=== PATIENT | female | born 1935 | race Caucasian/White ===

== ENCOUNTER 2024-07-31 07:07 | Emergency (ER) | payer OTHER, SELFPAY ==
[2024-07-31 07:09] VITALS: BP 156/74
[2024-07-31 07:19] LABS: Glucose - Point of Care 206 mg/dl (70-99)
[2024-07-31 07:31] VITALS: BP 150/140
[2024-07-31 07:34] VITALS: BP 144/64
--- NOTE | 2024-07-31 07:36 | ED.GENMED ---
History of Present Illness
General
Chief Complaint: Abdominal Pain
Source: patient
Exam Limitations: none
Time Seen by Provider: 07/31/24 07:26
History of Present Illness
History of Present Illness:
89-year-old insulin-dependent diabetic presents complaining of onset of upper abdominal pain around midnight last evening has been constant since. The pain is not pleuritic. She denies chest pain. She denies nausea or vomiting. There may have
been some diarrhea in the patient's apartment per the daughter. Patient has a prior surgical history of cholecystectomy. The pain does not radiate to the back. She is not anticoagulated. No shortness of breath. No other complaints at this time
Past History
Past History
ED Past Medical History: None
ED Past Surgical History: None
Social History
Tobacco: Non-smoker
Personal: Single
Living: alone
Phy Exam
Physical Exam
Physical Exam:
General: Well-appearing female no acute respiratory distress
HEENT: Normocephalic atraumatic heart: Regular rate and rhythm no murmurs
Lungs: Clear no wheeze
Abdomen: Soft mildly tender to the mid and upper abdomen. No guarding rebound normal bowel sounds nondistended no costovertebral angle tenderness
Extremities: No cyanosis or edema
Skin: Warm no rash
Course
Orders/Labs/Results
Orders:
Orders
07/31/24 07:34
Electrocardiogram (*1) Urgent
Reason for Study: Abdominal Pain
CT Abd/pelvis W Iv Cont Urgent
Comment:
Reason For Exam: mid abdominal pain
EKG- Treatment ONCE
Urinalysis Reflex To Culture Urgent
Date Specimen was Collected: 07/31/24
Time Specimen was Collected: 07:47
07/31/24 07:52
Complete Blood Count/With Diff Urgent
Comprehensive Metabolic Panel Urgent
Lipase Urgent
Troponin I Urgent
Abnormal Lab Results
07/31/24 07/31/24
07:18 07:52
RBC 3.43 L 10^6/uL
(4.20-5.40)
Hgb 9.1 L g/dL
(12.0-16.0)
Hct 29.5 L %
(37.0-47.0)
MCH 26.5 L pg
(27.0-31.0)
MCHC 30.8 L g/dL
(33.0-37.0)
Plt Count 454 H 10^3/uL
(130-400)
Absolute Neuts (auto) 7.5 H 10^3/uL
(1.4-6.5)
Absolute Lymphs (auto) 1.1 L 10^3/uL
(1.2-3.4)
Absolute Monos (auto) 0.7 H 10^3/uL
(0.1-0.6)
Neutrophils % 79.9 H %
(42.2-75.2)
Lymphocytes % 11.3 L %
(20.5-51.1)
Sodium 134 L mmol/L
(135-145)
Creatinine 0.5 L mg/dL
(0.6-1.0)
Glucose 202 H mg/dl
(70-99)
POC Glucose 206 H mg/dl
(70-99)
07/31/24 07:52
07/31/24 07:52
Vital Signs
Initial and Last Documented VS:
Initial Vital Signs
Temp Pulse Resp BP Pulse Ox
97.6 F 85 16 156/74 99
07/31/24 07:09 07/31/24 07:09 07/31/24 07:09 07/31/24 07:09 07/31/24 07:09
Last Documented Vital Signs
Temp Pulse Resp BP Pulse Ox
98.5 F 80 21 155/80 96
07/31/24 08:03 07/31/24 08:03 07/31/24 08:03 07/31/24 09:39 07/31/24 08:03
MDM/Problems Addressed
Differential Diagnosis Includes:
Abdominal pain. Differential could include gastritis versus constipation. Patient has prior cholecystectomy. Consider pancreatitis. Also an elderly diabetic female consider cardiac related symptoms. EKG troponin lipase pending. CT also ordered.
*Critical Care Note
Total Time (30-74mins, 75-104mins- exclusive of procedures): Not Applicable
Update Note
Update Note:
EKG shows sinus rhythm with right bundle branch block. This is not new. Ventricular rate is 80. No ischemic changes EKG shows thickening of the distal stomach and proximal duodenum to suggest gastritis and duodenitis. Hemoglobin is 9.1. Most
recent from 2 years ago showed a hemoglobin of 11. Family states that she is always anemic. Patient is denying any dark stools. Patient wishes to go home. Recommended antacids and bland diet. Stable for discharge with GI follow-up. Return
precautions were given
ED Attending Note
-
Portions of this chart may have been created with voice recognition software.� Occasional wrong word or��sound alike� substitutions may have occurred due to the inherent limitations of voice recognition software.
Discharge Plan
Departure
Patient Disposition: Home (Routine Discharge)
Date of Disposition: 07/31/24
Time of Disposition: 09:54
Patient with high blood pressure during this ER visit?: No
Discharge Problem:
Abdominal pain
Instructions: Abdominal Pain
Prescriptions:
New
pantoprazole [Protonix] 40 mg tablet,delayed release (DR/EC)
40 mg PO DAILY Qty: 14 0RF
No Action
(DME) Blood Glucose Test 1 EACH strip
1 ea MC TID Qty: 100 3RF
Rx Instructions:
E 11.65
ACCUCHEK GUIDE test strips to test Before breakfast dinner and bedtime as directed.
(DME) pen needle, diabetic 1 EACH needle
1 ea MC QID Qty: 120 3RF
Rx Instructions:
E 11.65
BD BARBI pen needles for QID injections
(DME) lancets 1 EACH misc
1 ea MC TID Qty: 100 3RF
Rx Instructions:
E 11.65
Accuchek Guide FAST CLIX lancets
metformin 500 MG tablet
500 mg PO BID@0800,1700
insulin aspart U-100 [Novolog FlexPen U-100 Insulin] 300 UNITS/3 ML insulin pen
4 units SC AC
Rx Instructions:
E 11.65
injected 10 m inutes before each meal
insulin glargine [Lantus Solostar U-100 Insulin] 300 UNITS/3 ML insulin pen
12 units SC HS
Rx Instructions:
E 11.65
Referrals:
Jie Kelly MD [Active] -
Cathleen Desouza PA-C [Family Provider] -
Activity Restrictions/Additional Instructions:
Drink plenty of clear liquids. Avoid caffeine and alcohol. Use bland diet. Use antacids as directed. Symptoms persist follow-up with GI return here if worse otherwise
Interventions
Interventions:
*Risk Screen - Suicide Last Done: 07/31/24 07:09
*General Assessment Last Done: 07/31/24 08:03
*Neglect/Abuse Screening Last Done: 07/31/24 07:12
ED- Fall Risk Assessment Last Done: 07/31/24 08:03
*ED COVID-19 Vaccine History Last Done: 07/31/24 08:03
ZR-Lxnpiy-Vqrzobphld Assessment Last Done: 07/31/24 08:03
Discharge Date and Time
Print Language: SAUDI ARABIAN
[2024-07-31 08:00] VITALS: BP 146/71
[2024-07-31 08:02] VITALS: BMI 32.6
[2024-07-31 08:03] VITALS: BP 146/71
[2024-07-31 08:08] LABS: % Basophils 0.6 % (0-2); % Eosinophils 0.4 % (0-6); % Immature Granulocytes 0.3 % (0-0.5); % Lymphocytes 11.3 % (20.5-51.1); % Monocytes 7.5 % (1.7-9.3); % Neutrophils 79.9 % (42.2-75.2); Absolute Basophils 0.1 10^3/uL (0-0.2); Absolute Lymphocytes 1.1 10^3/uL (1.2-3.4); Absolute Monocytes 0.7 10^3/uL (0.1-0.6); Absolute Neutrophils 7.5 10^3/uL (1.4-6.5); Hematocrit 29.5 % (37.0-47.0); Hemoglobin 9.1 g/dL (12.0-16.0); Mean Corp Hgb Conc. 30.8 g/dL (33.0-37.0); Mean Corpuscular Hgb 26.5 pg (27.0-31.0); Mean Platelet Volume 9.1 fL (7.4-10.4); Nucleated Red Blood Cells % 0 %; Platelet Count 454 10^3/uL (130-400); Red Blood Cell Count 3.43 10^6/uL (4.20-5.40); Red Cell Dist. Width 13.8 % (11.5-14.5); White Blood Cell Count 9.4 10^3/uL (4.8-10.8)
[2024-07-31 08:20] LABS: ALT (SGPT) 17 U/L (0-35); AST (SGOT) 25 U/L (14-36); Albumin 3.9 g/dl (3.5-5.0); Alkaline Phosphatase 107 U/L (38-126); Blood Urea Nitrogen 13 mg/dl (7-17); Calcium 8.5 mg/dl (8.4-10.2); Carbon Dioxide 23 mmol/L (22-30); Chloride 100 mmol/L (98-107); Estimated Creatinine Clearance 75 ml/min; Glucose 202 mg/dl (70-99); Lipase 117 U/L (23-300); Potassium 4.6 mmol/L (3.5-5.1); Sodium 134 mmol/L (135-145); Total Bilirubin 0.5 mg/dl (0.2-1.3); Total Protein 6.7 g/dl (6.3-8.2); eGFR > 60.00
[2024-07-31 08:37] LABS: Troponin I < 0.012 ng/ml
[2024-07-31 09:39] VITALS: BP 155/80
--- NOTE | 2024-07-31 09:39 | EDRN ---
the pt is sitting on the side of the bed and is eating his breakfast, this RN checked the pts BP before medication administration, neurologist currently at the pts bedside
[2024-07-31 10:40] LABS: Urine Albumin Trace (Neg - Trace); Urine Bilirubin Negative (Negative); Urine Character Clear (Clear); Urine Color Yellow; Urine Glucose Trace (Negative); Urine Ketone 1+ (Negative); Urine Leukocyte 1+ (Negative); Urine Nitrite Negative (Negative); Urine Occult Blood Negative (Negative); Urine Specific Gravity 1.005 (<1.030); Urine Urobilinogen Negative (Neg - 1+)
--- NOTE | 2024-07-31 10:56 | EDRN ---
this RN saw the pt and her daughter Lynda walking down the hallway towards the exit of the emergency room, this RN ran after them and asked them if they could hang on a second for their discharge papers and this RN notified them that this RN needed
to remove the PIV, the pts daughter stated, 'Oh i used to work here so i just took it out, she gets nasty and didn't want to wait', this RN asked the pt if this RN could look at her arm to assure that it is not bleeding and the pt would not allow
this RN to view the site of the PIV discontinuation, the pts daughter stated, 'Well i had a bandaid so i just placed that', this RN notified the provider Uli Whitney and per the provider it was okay that the pt left, this RN provided discharge
instructions to the pt and the pts daughter and they verbally stated that they understood, Uli NELSON at the pts bedside and answered discharge questions
[2024-07-31 11:08] LABS: Urine Squamous Cell 26-30 /LPF (Few)
[2024-07-31 11:09] LABS: Urine Bacteria Few (Negative); Urine Red Blood Cell 0-2 /HPF (0-2); Urine Urothelial Cell 26-30 /LPF (FEW)
== END 2024-07-31 11:12 | disposition home or self-care (01) ==
LOC: EMR 07:07
PROVIDERS: Physician Assistant; EMERGENCY PHYSICIAN Emergency Medicine; FAMILY PHYSICIAN Physician Assistant Medical
DX: R10.10 Upper abdominal pain, unspecified (principal); E11.9 Type 2 diabetes mellitus without complications; Z79.4 Long term (current) use of insulin; Z90.49 Acquired absence of other specified parts of digestive tract
CPT/HCPCS: 99284; 74177; 80053; 81003; 81015; 82962; 83690; 84484; 85025; 87086; 93005; Q9967